=== PATIENT | male | born 1940 ===

== ENCOUNTER 2018-12-05 10:03 | Emergency (ER) | payer OTHER ==
[~2018-12-05] VITALS: Ht 175.3 cm; Wt 77.1 kg
[2018-12-05] MEDS ORDERED: MICARDIS20 MG (10:09)
== END 2018-12-05 16:14 | disposition home or self-care (01) ==
LOC: ER 10:03
DX: R42 Dizziness and giddiness (principal)

== ENCOUNTER 2020-05-28 09:00 | Outpatient (CLI) | payer OTHER ==
[~2020-05-28 09:00] MED LIST: MICARDIS20 MG
== END 2020-05-28 10:00 | disposition home or self-care (01) ==
LOC: NUCLEAR 09:00
PROVIDERS: ATTEND Internal Medicine Cardiovascular Disease
DX: I11.9 Hypertensive heart disease without heart failure (principal); I49.3 Ventricular premature depolarization; E78.00 Pure hypercholesterolemia, unspecified; R94.31 Abnormal electrocardiogram [ECG] [EKG]; I47.9 Paroxysmal tachycardia, unspecified